=== PATIENT | female | born 1965 | race Caucasian/White ===

== ENCOUNTER 2017-08-20 07:07 | Day surgery (SDC) | payer OTHER, MEDICAID ==
[2017-08-20] MEDS ORDERED: D5 LR 1000 ML 1,000 ML IV ONE (07:18)
[2017-08-20] MEDS ORDERED: XYLOCAINE 2 % (PLAIN) ONE (08:31)
[2017-08-20] MEDS ORDERED: DIPRIVAN VIAL 20 ML ONE ×2 (08:31→08:44)
[2017-08-20] MEDS ORDERED: VERSED ONE (08:42)
[2017-08-20 09:26] VITALS: BP 133/68
== END 2017-08-20 09:25 | disposition home or self-care (01) ==
LOC: SURG1 07:07
PROVIDERS: ATTEND Internal Medicine Gastroenterology
PROC: 0DBN8ZX Excision of Sigmoid Colon, Via Natural or Artificial Opening Endoscopic, Diagnostic (ICD-10-PCS; principal; 2017-08-20 07:30)
PROC: 0DJD8ZZ Inspection of Lower Intestinal Tract, Via Natural or Artificial Opening Endoscopic (ICD-10-PCS; principal; 2017-08-20 07:30)
DX: Z12.11 Encounter for screening for malignant neoplasm of colon (principal); Z86.010 Personal history of colon polyps; K63.5 Polyp of colon; K64.0 First degree hemorrhoids; K57.30 Diverticulosis of large intestine without perforation or abscess without bleeding
CPT/HCPCS: A4217; J2001; J2250; J3490; J7120